=== PATIENT | female | born 1955 | race Caucasian/White ===

== ENCOUNTER → 2020-01-30 | Outpatient (CLI) | payer MEDICARE | END | disposition home or self-care (01) | LOC: RADPV 10:41 | PROVIDERS: ATTEND Hospitalist | DX: N13.30 Unspecified hydronephrosis (principal); N28.1 Cyst of kidney, acquired; N25.1 Nephrogenic diabetes insipidus; R33.8 Other retention of urine | CPT/HCPCS: 76770 ==

== ENCOUNTER 2022-06-11 08:11 | Emergency (ER) | payer MEDICARE, MEDICAID ==
[~2022-06-11] VITALS: Ht 165.1 cm; Wt 109.1 kg
[2022-06-11] MEDS ORDERED: PALI1.5T7 PO (08:21)
[2022-06-11] MEDS ORDERED: DIVA125T32 PO (08:21)
[2022-06-11] MEDS ORDERED: DULA0.75 SQ (08:21)
[2022-06-11] MEDS ORDERED: KETOROLAC TROMETHAMINE 60 MG/2 ML VIAL IM ONE (10:45)
[2022-06-11 10:50] VITALS: BP 120/72
== END 2022-06-11 11:35 | disposition home or self-care (01) ==
LOC: EMS 08:11
DX: S80.02XA Contusion of left knee, initial encounter (principal); E11.9 Type 2 diabetes mellitus without complications; F20.9 Schizophrenia, unspecified; J44.9 Chronic obstructive pulmonary disease, unspecified; W01.0XXA Fall on same level from slipping, tripping and stumbling without subsequent striking against object, initial encounter; Y93.89 Activity, other specified; Y92.89 Other specified places as the place of occurrence of the external cause; Y99.8 Other external cause status; Z90.89 Acquired absence of other organs
CPT/HCPCS: 99283; 29505; 82962; 73562; 96372; J1885